=== PATIENT | male | born 1970 | race Caucasian/White ===

== ENCOUNTER → 2023-08-08 07:43 | Outpatient (CLI) | payer OTHER, SELFPAY ==
[2023-08-08 09:47] LABS: Gamma Glutamyl Transpeptidase 56 U/L (15-73)
[2023-08-11 06:19] LABS: Hepatitis B Surf Ab Qualitativ Non Reactive (.)
== END ==
PROVIDERS: PCP Family Medicine; Referring Provider Family Medicine; Visit Provider Family Medicine
DX: Z01.84 Encounter for antibody response examination (principal); R74.8 Abnormal levels of other serum enzymes
CPT/HCPCS: 36415; 82977; 86706